=== PATIENT | male | born 1945 | race American Indian/Alaskan Native ===

== ENCOUNTER 2018-04-21 05:46 | Inpatient (IN) | payer OTHER ==
--- NOTE | 2018-04-21 06:51 | XRay Report ---
FINAL REPORT EXAM: XR CHEST ROUTINE 2V HISTORY: SOB TECHNIQUE: PA and lateral views of the chest were submitted. FINDINGS: The heart size and vascularity appear normal. The lungs are clear. Pleural fluid is not seen. The thoracic aorta is mildly tortuous. The skeletal structures do not show any acute changes. IMPRESSION: No acute cardiopulmonary process.
--- NOTE | 2018-04-21 06:57 | Cat Scan Report ---
FINAL REPORT EXAM: CT HEAD/BRAIN WO CON HISTORY: S/P fall with LOC/ lac to forehead TECHNIQUE: Routine axial imaging was obtained of the brain without IV contrast. FINDINGS: There is age related atrophy. There is diminished attenuation of the periventricular white matter compatible with chronic microvascular disease changes. There is no evidence of acute stroke or hemorrhage. There are no extra-axial fluid collection. The basal cisterns appear normal. The visualized sinuses are clear. The mastoid air cells are well pneumatized. There is localized scalp swelling along inferior medial aspect of the left frontal area. There is no evidence of skull fracture. IMPRESSION: Left frontal scalp swelling. No evidence of skull fracture. Age related atrophy with chronic microvascular disease changes. No evidence of acute stroke or hemorrhage.
[2018-04-21 07:07] LABS: Basophils # (Auto) 0.1 K/mm3 (0.0-0.1); Basophils % (Auto) 0.4 % (0.0-1.8); Hematocrit 32.3 % (35.5-45.6); Lymphocytes # (Auto) 1.9 K/mm3 (1.2-5.4); Lymphocytes % (Auto) 10.5 % (13.4-35.0); Mean Corpuscular HGB Conc 31 % (32-34); Mean Corpuscular Hemoglobin 19 pg (28-32); Mean Corpuscular Volume 62 fl (84-94); Monocytes # (Auto) 1.4 K/mm3 (0.0-0.8); Monocytes % (Auto) 7.7 % (0.0-7.3); Platelet Count 495 K/mm3 (140-440); Red Blood Count 5.18 M/mm3 (3.65-5.03); Red Cell Distribution Width 20.9 % (13.2-15.2)
[2018-04-21 07:49] LABS: Albumin 4.5 g/dL (3.9-5); Calcium 9.3 mg/dL (8.4-10.2)
[2018-04-21] MEDS ORDERED: NACL 0.9% 1000 ML 1,000 ML IV ONE (08:19)
[2018-04-21] MEDS ORDERED: LEVAQUIN 500MG/100ML 500 MG/100 ML BAG IV ONE (08:22)
[2018-04-21] MEDS ORDERED: BOOSTRIX IM ONE ×3 (08:25→10:57)
--- NOTE | 2018-04-21 08:31 | Emergency Department Report ---
ED General Adult HPI - General Chief complaint: Fall Stated complaint: FALL/CUT OVER LT EYE Time Seen by Provider: 04/21/18 07:52 Source: patient, family Mode of arrival: Ambulatory Limitations: No Limitations - History of Present Illness Initial comments: This is a 72 year old male that has fallen 3 times in the past 2 days. Fall that was associated with the laceration to his left eyebrow with more than one day ago. He fell again at about 4 AM prior to coming to the emergency department last night. He has been lethargic but is verbally coherent. He states he had been vomiting and unable to tolerate oral feeding. He denies diarrhea. He states he feels cold now but no temperature was taken at home. He has no history of serious infection per the daughter who accompanies him to the emergency department. The patient has a history of hypertension and apparently schizophrenia judging from his medication. The daughter states the patient has not previously been admitted for a serious infection and not been to this facility before. -: Gradual, days(s) Location: head (not complaining of pain at all at this point) Worsens with: none Associated Symptoms: denies other symptoms (except as above described), weakness (and falls) - Related Data Home Medications Medication Instructions Recorded Confirmed Last Taken Aspirin 81 mg PO QDAY 04/21/18 04/21/18 04/19/18 Atorvastatin Calcium 20 mg PO QHS 04/21/18 04/21/18 04/19/18 Lisinopril [Zestril] 5 mg PO QHS 04/21/18 04/21/18 04/19/18 Pantoprazole [Protonix] 40 mg PO QDAY 04/21/18 04/21/18 04/19/18 Triamterene/Hydrochlorothiazid 1 each PO QDAY 04/21/18 04/21/18 04/19/18 [Triamterene-Hctz 37.5-25 mg Cp] amLODIPine [Norvasc] 10 mg PO QDAY 04/21/18 04/21/18 04/19/18 risperiDONE [RisperiDONE] 1 mg PO QHS 04/21/18 04/21/18 04/19/18 traZODone [Desyrel] 50 mg PO QHS 04/21/18 04/21/18 04/19/18 Allergies Allergy/AdvReac Type Severity Reaction Status Date / Time Penicillins Allergy Hives Verified 04/21/18 06:02 ED Review of Systems ROS: Stated complaint: FALL/CUT OVER LT EYE Other details as noted in HPI Constitutional: weakness. denies: chills, fever Eyes: denies: eye pain, eye discharge, vision change ENT: denies: ear pain, throat pain Respiratory: denies: cough, shortness of breath, wheezing Cardiovascular: denies: chest pain, palpitations Endocrine: no symptoms reported Gastrointestinal: vomiting. denies: abdominal pain, nausea, diarrhea Genitourinary: denies: urgency, dysuria Musculoskeletal: denies: back pain, joint swelling, arthralgia Skin: denies: rash, lesions Neurological: denies: headache, weakness, paresthesias Psychiatric: denies: anxiety, depression Hematological/Lymphatic: denies: easy bleeding, easy bruising ED Past Medical Hx - Past Medical History Previous Medical History?: Yes Hx Hypertension: Yes Hx Psychiatric Treatment: Yes - Surgical History Past Surgical History?: No - Social History Smoking Status: Current Every Day Smoker Substance Use Type: Alcohol, Marijuana - Medications Home Medications: Home Medications Medication Instructions Recorded Confirmed Last Taken Type Aspirin 81 mg PO QDAY 04/21/18 04/21/18 04/19/18 History Atorvastatin Calcium 20 mg PO QHS 04/21/18 04/21/18 04/19/18 History Lisinopril [Zestril] 5 mg PO QHS 04/21/18 04/21/18 04/19/18 History Pantoprazole [Protonix] 40 mg PO QDAY 04/21/18 04/21/18 04/19/18 History Triamterene/Hydrochlorothiazid 1 each PO QDAY 04/21/18 04/21/18 04/19/18 History [Triamterene-Hctz 37.5-25 mg Cp] amLODIPine [Norvasc] 10 mg PO QDAY 04/21/18 04/21/18 04/19/18 History risperiDONE [RisperiDONE] 1 mg PO QHS 04/21/18 04/21/18 04/19/18 History traZODone [Desyrel] 50 mg PO QHS 04/21/18 04/21/18 04/19/18 History ED Physical Exam - General Limitations: No Limitations General appearance: in no apparent distress, lethargic (Will open eyes to command, keeps them closed so until verbal stimuli. GCS is 14), other (appears dehydrated) - Head Head exam: Present: normocephalic. Absent: atraumatic (there is a healing laceration in the left supra-ciliary area of the eyebrow somewhat vertically. There is soft tissue swelling. There is scabbing but no bleeding.) - Eye Eye exam: Present: normal appearance, PERRL, EOMI. Absent: scleral icterus - ENT ENT exam: Present: mucous membranes moist - Neck Neck exam: Present: normal inspection. Absent: tenderness, meningismus - Respiratory Respiratory exam: Present: normal lung sounds bilaterally. Absent: respiratory distress - Cardiovascular Cardiovascular Exam: Present: regular rate, normal rhythm. Absent: systolic murmur, diastolic murmur, rubs, gallop - GI/Abdominal GI/Abdominal exam: Present: soft, normal bowel sounds. Absent: distended, tenderness, guarding, rebound, rigid - Rectal Rectal exam: Present: deferred - Extremities Exam Extremities exam: Present: normal inspection - Neurological Exam Neurological exam: Present: oriented X3, CN II-XII intact. Absent: alert ( lethargic), motor sensory deficit - Psychiatric Psychiatric exam: Present: normal mood, flat affect - Skin Skin exam: Present: warm, dry, intact, normal color. Absent: rash ED Course Vital Signs 04/21/18 06:01 Temperature 97.6 F Pulse Rate 121 H Respiratory 18 Rate Blood Pressure 102/56 O2 Sat by Pulse 96 Oximetry - Reevaluation(s) Reevaluation #1: Patient meets criteria for SIRS. He will be cultured. A lactic acid level will be obtained. He is allergic to penicillin (hives) he was started on vancomycin and Levaquin renal dosing. He will be admitted to the hospitalist service for further care and evaluation. 04/21/18 08:39 Reevaluation #2: Spoke with hospitalist service. Admit to Dr. Hortensia Fowler for further evaluation and care. 04/21/18 09:29 ED Medical Decision Making - Lab Data Result diagrams: 04/21/18 06:55 04/21/18 06:55 Laboratory Results - last 24 hr 04/21/18 04/21/18 06:55 06:55 WBC 18.2 H RBC 5.18 H Hgb 10.0 L Hct 32.3 L MCV 62 L MCH 19 L MCHC 31 L RDW 20.9 H Plt Count 495 H Lymph % (Auto) 10.5 L [place] % (Auto) 7.7 H Eos % (Auto) 0.0 Baso % (Auto) 0.4 Lymph # 1.9 [place] # 1.4 H Eos # 0.0 Baso # 0.1 Seg Neutrophils % 81.4 H Seg Neutrophils # 14.8 H Sodium 132 L Potassium 4.2 Chloride 91.1 L Carbon Dioxide 25 Anion Gap 20 BUN 34 H Creatinine 2.1 H Estimated GFR 31 BUN/Creatinine Ratio 16 Glucose 133 H Calcium 9.3 Total Bilirubin 0.30 AST 29 ALT 24 Alkaline Phosphatase 110 Total Protein 8.1 Albumin 4.5 Albumin/Globulin Ratio 1.3 - EKG Data -: EKG Interpreted by Me EKG shows normal: sinus rhythm (some wandering pacemaker with atrial activity) Rate: normal (96) - EKG Data Interpretation: no acute changes - Radiology Data Radiology results: report reviewed Critical care attestation.: If time is entered above; I have spent that time in minutes in the direct care of this critically ill patient, excluding procedure time. ED Disposition Clinical Impression: SIRS (systemic inflammatory response syndrome), Volume depletion Leukocytosis Qualifiers: Leukocytosis type: unspecified Qualified Code(s): D72.829 - Elevated white blood cell count, unspecified Acute renal failure Qualifiers: Acute renal failure type: unspecified Qualified Code(s): N17.9 - Acute kidney failure, unspecified Eyebrow laceration Qualifiers: Encounter type: initial encounter Laterality: left Qualified Code(s): S01.112A - Laceration without foreign body of left eyelid and periocular area, initial encounter Falls Qualifiers: Encounter type: initial encounter Qualified Code(s): W19.XXXA - Unspecified fall, initial encounter Disposition: OP ADMIT IP TO THIS HOSP Is pt being admited?: Yes Does the pt Need Aspirin: Yes Condition: Stable Time of Disposition: 09:30
[2018-04-21 08:57] LABS: INR 0.91 (0.87-1.13)
[2018-04-21 08:58] LABS: Partial Thromboplastin Time 25.8 Sec. (24.2-36.6)
[2018-04-21 09:23] LABS: Bilirubin,Urine NEG (Negative); Blood,Urine NEG (Negative); Color,Urine Yellow (Yellow); Mucus,Urine FEW /HPF; Urobilinogen,Urine < 2.0 mg/dL (<2.0)
[2018-04-21] MEDS ORDERED: BABY ASPIRIN PO ONE (09:31)
[2018-04-21] MEDS ORDERED: VANCOMYCIN PHARMACY TO DOSE IV SCH (10:00)
[2018-04-21] MEDS ORDERED: VANCOMYCIN 1,250 MG in NACL 0.9% 250ML 250 ML IV ONE (10:00)
--- NOTE | 2018-04-21 10:24 | History and Physical Report ---
History of Present Illness Date of examination: 04/21/18 Date of admission: 04/21/18 Chief complaint: History of recurrent fall, laceration left supraorbital area History of present illness: 72-year-old -[place] male patient with significant history of chronic alcohol use schizophrenia hypertension Visiting his daughter from [place] was brought to the emergency room with history of recurrent falls, patient sustained laceration supraorbital area left-sided Sutured in the emergency room, patient has history of chronic alcohol use Denies any chest pain or shortness of breath, denies headache or dizziness Past History Past Medical History: hypertension, hyperlipidemia, other (schizophrenia) Social history: lives with family, smoking, alcohol abuse, other (recreational drug use) Family history: hypertension Medications and Allergies Allergies Allergy/AdvReac Type Severity Reaction Status Date / Time Penicillins Allergy Hives Verified 04/21/18 06:02 Home Medications Medication Instructions Recorded Confirmed Last Taken Type Aspirin 81 mg PO QDAY 04/21/18 04/21/18 04/19/18 History Atorvastatin Calcium 20 mg PO QHS 04/21/18 04/21/18 04/19/18 History Lisinopril [Zestril] 5 mg PO QHS 04/21/18 04/21/18 04/19/18 History Pantoprazole [Protonix] 40 mg PO QDAY 04/21/18 04/21/18 04/19/18 History Triamterene/Hydrochlorothiazid 1 each PO QDAY 04/21/18 04/21/18 04/19/18 History [Triamterene-Hctz 37.5-25 mg Cp] amLODIPine [Norvasc] 10 mg PO QDAY 04/21/18 04/21/18 04/19/18 History risperiDONE [RisperiDONE] 1 mg PO QHS 04/21/18 04/21/18 04/19/18 History traZODone [Desyrel] 50 mg PO QHS 04/21/18 04/21/18 04/19/18 History Active Meds: Active Medications Amlodipine Besylate (Norvasc) 10 mg PO QDAY [facility] Aspirin (Baby Aspirin) 81 mg PO QDAY [facility] Atorvastatin Calcium (Lipitor) 20 mg PO QHS [facility] Vancomycin HCl 1,250 mg/ (Sodium Chloride) 275 mls @ 166.667 mls/hr IV ONCE.ED ONE Stop: 04/21/18 11:38 Lisinopril (Zestril) 5 mg PO QHS [facility] Pantoprazole Sodium (Protonix) 40 mg PO QDAY [facility] Risperidone (Risperdal) 1 mg PO QHS [facility] Trazodone HCl (Desyrel) 50 mg PO QHS [facility] Review of Systems Constitutional: no weight loss, no weight gain, no fever, no chills, no anorexia , no fatigue Ears, nose, mouth and throat: no nasal congestion, no nasal discharge Cardiovascular: lightheadedness, shortness of breath, no chest pain, no orthopnea Respiratory: no cough with sputum, no hemoptysis Gastrointestinal: no abdominal pain, no nausea, no vomiting Genitourinary Male: no dysuria, no hematuria Musculoskeletal: no myalgias, no arthritis Integumentary: no rash, no lesions Neurological: head injury, weakness, ataxia, other (recurrent falls) Psychiatric: no anxiety, no depression Hematologic/Lymphatic: no easy bruising, no easy bleeding Allergic/Immunologic: no urticaria, no allergic rhinitis Exam - Constitutional Vitals: Temp Pulse Resp BP Pulse Ox 97.6 F 93 H 15 119/65 98 04/21/18 06:01 04/21/18 09:48 04/21/18 09:48 04/21/18 09:48 04/21/18 09:48 General appearance: Present: no acute distress, well-nourished, other ( laceration left supraorbital area sutured mild edema) - EENT Eyes: Present: PERRL, EOM intact - Neck Neck: Present: supple, normal ROM - Respiratory Respiratory effort: normal Respiratory: bilateral: diminished, negative: rales, rhonchi, wheezing - Cardiovascular Rhythm: regular Heart Sounds: Present: S1 & S2 - Extremities Extremities: no ischemia, No edema - Abdominal General gastrointestinal: Present: soft, non-tender, non-distended, normal bowel sounds - Integumentary Integumentary: Present: clear, warm - Musculoskeletal Musculoskeletal: strength equal bilaterally, generalized weakness - Psychiatric Psychiatric: appropriate mood/affect - Neurologic Neurologic: moves all extremities Results - Labs CBC & Chem 7: 04/21/18 06:55 04/21/18 06:55 Labs: Abnormal lab results 04/21/18 04/21/18 04/21/18 Range/Units 06:55 06:55 08:24 WBC 18.2 H (4.5-11.0) K/mm3 RBC 5.18 H (3.65-5.03) M/mm3 Hgb 10.0 L (11.8-15.2) gm/dl Hct 32.3 L (35.5-45.6) % MCV 62 L (84-94) fl MCH 19 L (28-32) pg MCHC 31 L (32-34) % RDW 20.9 H (13.2-15.2) % Plt Count 495 H (140-440) K/mm3 Lymph % (Auto) 10.5 L (13.4-35.0) % [place] % (Auto) 7.7 H (0.0-7.3) % [place] # 1.4 H (0.0-0.8) K/mm3 Seg Neutrophils % 81.4 H (40.0-70.0) % Seg Neutrophils # 14.8 H (1.8-7.7) K/mm3 Sodium 132 L (137-145) mmol/L Chloride 91.1 L (98-107) mmol/L BUN 34 H (9-20) mg/dL Creatinine 2.1 H (0.8-1.5) mg/dL Glucose 133 H (75-100) mg/dL NT-Pro-B Natriuret Pep 1905 H (0-900) pg/mL Assessment and Plan --Recurrent falls; fall precautions Orthostats, supportive care --Acute kidney injury; probably vasomotor nephropathy/ATN Gentle hydration, closely monitor the renal function, avoid nephrotoxins Nephrology consult if needed --Hypertension ; resume home antihypertensives, when necessary medications --Leukocytosis; rule out sepsis, cultures, empiric antibiotics, possible UTI --Elevated BNP; possible congestive heart failure, echocardiogram for left ventricular function ejection fraction --Chronic alcohol use; counseling, advised to quit alcohol intake --Alcohol withdrawal symptoms; closely monitor, CIWA protocol, Ativan as needed --Physical therapy occupational therapy, rehabilitation --DVT prophylaxis; Lovenox --Full CODE STATUS Closely monitor the patient and adjust the management as needed Plan of care is reviewed with the patient and his daughter at the bedside I also discussed with patient's nurse
[2018-04-21] MEDS: ZOFRAN IV PRN (20:52)
[2018-04-21 23:18] LABS: Amphetamine Screen,Urine PRESUMPTIVE NEGATIVE; Benzodiazepines Screen,Urine PRESUMPTIVE NEGATIVE; Cocaine Screen,Urine PRESUMPTIVE NEGATIVE; Methadone Screen,Urine PRESUMPTIVE NEGATIVE; Opiate Screen,Urine PRESUMPTIVE NEGATIVE
[2018-04-21] MEDS: ZESTRIL PO SCH (23:29)
[2018-04-21] MEDS: RisperDAL PO SCH (23:29)
[2018-04-21] MEDS: DESYREL PO SCH (23:29)
[2018-04-21 23:48] LABS: Cannabinoid Screen,Urine PRESUMPTIVE POSITIVE
[2018-04-22 08:32] LABS: Basophils # (Auto) 0.1 K/mm3 (0.0-0.1); Basophils % (Auto) 0.8 % (0.0-1.8); Eosinophils % (Auto) 0.2 % (0.0-4.3); Hematocrit 30.2 % (35.5-45.6); Hemoglobin 9.4 gm/dl (11.8-15.2); Lymphocytes # (Auto) 2.8 K/mm3 (1.2-5.4); Lymphocytes % (Auto) 25.4 % (13.4-35.0); Mean Corpuscular HGB Conc 31 % (32-34); Monocytes # (Auto) 0.9 K/mm3 (0.0-0.8); Monocytes % (Auto) 8.2 % (0.0-7.3); Platelet Count 422 K/mm3 (140-440); Red Blood Count 4.87 M/mm3 (3.65-5.03)
[2018-04-22 08:39] LABS: Mean Corpuscular Hemoglobin 19 pg (28-32); Mean Corpuscular Volume 62 fl (84-94); Red Cell Distribution Width 21.6 % (13.2-15.2)
[2018-04-22 08:53] LABS: BUN/Creatinine Ratio 18; Blood Urea Nitrogen 25 mg/dL (9-20); Calcium 8.6 mg/dL (8.4-10.2); Hemolysis Index 5
[2018-04-22 08:55] LABS: Creatine Kinase MB 2.6 ng/mL (0.0-4.0)
[2018-04-22] MEDS ORDERED: LEVAQUIN 500MG/100ML 500 MG/100 ML BAG IV SCH (10:00)
[2018-04-22] MEDS ORDERED: K-DUR PO ONE ×2 (11:00→16:00)
--- NOTE | 2018-04-22 11:32 | Discharge Summary ---
Providers - Providers Date of Admission: 04/21/18 09:28 Date of discharge: 04/22/18 Attending physician: DELMI FLORES 04/21/18 15:50 Consult to Physician [CONS] Routine Comment: Consulting Provider: DARRELL FONTANEZ Physician Instructions: Reason For Exam: Acute Kidney injury 04/21/18 15:55 Physical Therapy Evaluation and Treat [CONS] Routine Comment: Reason For Exam: recurrent falls/evaluate and treat Primary care physician: DESKTOP MANAGER Hospitalization Condition: Stable Exam - Constitutional Vitals: Temp Pulse Resp BP Pulse Ox 98.6 F 100 H 18 136/87 95 04/22/18 05:34 04/22/18 05:34 04/22/18 05:34 04/22/18 05:34 04/22/18 05:34 Plan Follow up with: SUE SILVERIO MD [Primary Care Provider] - 3-5 Days
[2018-04-22] MEDS ORDERED: PNEUMOVAX 23 IM ONE (12:00)
[2018-04-22] MEDS: ZOFRAN IV PRN (12:16)
[2018-04-22] MEDS: LEVAQUIN 250MG/50ML 250 MG/50 ML BAG IV SCH (14:39)
[2018-04-22] MEDS: NORVASC PO SCH (14:39)
[2018-04-22] MEDS: BABY ASPIRIN PO SCH (14:40)
[2018-04-22] MEDS: PROTONIX PO SCH (14:40)
[2018-04-22] MEDS: VANCOMYCIN/NS 1 GM/250 ML 1 GM/250 ML BAG IV SCH (15:34)
--- NOTE | 2018-04-22 17:36 | Progress Note ---
Assessment and Plan Assessment and plan: --Gram-positive bacteremia; 1;2 Empiric antibiotics, repeat cultures. Supportive care --Hypokalemia; replace per protocol and monitor level --h/o Recurrent falls; fall precautions probably secondary to alcohol use Check Orthostats, patient tolerated physical therapy, --Acute kidney injury; probably vasomotor nephropathy/ATN; significantly improved Gentle hydration, closely monitor the renal function, avoid nephrotoxins --Hypertension ; well controlled , continue antihypertensives, when necessary medications --Leukocytosis; trending down, bacteremia, possible UTI --Elevated BNP; possible congestive heart failure, follow-up echocardiogram for EF --Chronic alcohol use; counseling, advised to quit alcohol intake --Alcohol withdrawal symptoms; closely monitor, CIWA protocol, Ativan as needed --Physical therapy occupational therapy, ambulated without assistance --DVT prophylaxis; Lovenox --Full CODE STATUS Closely monitor the patient and adjust the management as needed Plan of care is reviewed with the patient and his nurse Possible discharge in 1-2 days if stable History Interval history: Patient seen and examined medical records reviewed Patient doing well, planning to discharge the patient home today However 1 in 2 positive blood cultures gram-positive cocci Patient afebrile, No new complaints Vital signs stable Hospitalist Physical - Constitutional Vitals: Temp Pulse Resp BP Pulse Ox 98.1 F 100 H 19 132/82 98 04/22/18 12:45 04/22/18 12:45 04/22/18 12:45 04/22/18 12:45 04/22/18 12:45 General appearance: Present: no acute distress, well-nourished, other ( laceration left supraorbital area sutured mild edema) - EENT Eyes: Present: PERRL, EOM intact - Neck Neck: Present: supple, normal ROM - Respiratory Respiratory effort: normal Respiratory: bilateral: diminished, negative: rales, rhonchi, wheezing - Cardiovascular Rhythm: regular Heart Sounds: Present: S1 & S2 - Extremities Extremities: no ischemia, No edema - Abdominal General gastrointestinal: soft, non-tender, non-distended, normal bowel sounds - Integumentary Integumentary: Present: clear, warm - Psychiatric Psychiatric: appropriate mood/affect, cooperative - Neurologic Neurologic: CNII-XII intact, moves all extremities Results - Labs CBC & Chem 7: 04/22/18 07:54 04/22/18 07:54 Labs: Laboratory Last Values WBC 11.1 K/mm3 (4.5-11.0) H 04/22/18 07:54 RBC 4.87 M/mm3 (3.65-5.03) 04/22/18 07:54 Hgb 9.4 gm/dl (11.8-15.2) L 04/22/18 07:54 Hct 30.2 % (35.5-45.6) L 04/22/18 07:54 MCV 62 fl (84-94) L 04/22/18 07:54 MCH 19 pg (28-32) L 04/22/18 07:54 MCHC 31 % (32-34) L 04/22/18 07:54 RDW 21.6 % (13.2-15.2) H 04/22/18 07:54 Plt Count 422 K/mm3 (140-440) 04/22/18 07:54 Lymph % (Auto) 25.4 % (13.4-35.0) 04/22/18 07:54 [place] % (Auto) 8.2 % (0.0-7.3) H 04/22/18 07:54 Eos % (Auto) 0.2 % (0.0-4.3) 04/22/18 07:54 Baso % (Auto) 0.8 % (0.0-1.8) 04/22/18 07:54 Lymph # 2.8 K/mm3 (1.2-5.4) 04/22/18 07:54 [place] # 0.9 K/mm3 (0.0-0.8) H 04/22/18 07:54 Eos # 0.0 K/mm3 (0.0-0.4) 04/22/18 07:54 Baso # 0.1 K/mm3 (0.0-0.1) 04/22/18 07:54 Seg Neutrophils % 65.4 % (40.0-70.0) 04/22/18 07:54 Seg Neutrophils # 7.2 K/mm3 (1.8-7.7) 04/22/18 07:54 PT 12.7 Sec. (12.2-14.9) 04/21/18 08:24 INR 0.91 (0.87-1.13) 04/21/18 08:24 APTT 25.8 Sec. (24.2-36.6) 04/21/18 08:24 Sodium 133 mmol/L (137-145) L 04/22/18 07:54 Potassium 3.5 mmol/L (3.6-5.0) L 04/22/18 07:54 Chloride 95.6 mmol/L (98-107) L 04/22/18 07:54 Carbon Dioxide 24 mmol/L (22-30) 04/22/18 07:54 Anion Gap 17 mmol/L 04/22/18 07:54 BUN 25 mg/dL (9-20) H 04/22/18 07:54 Creatinine 1.4 mg/dL (0.8-1.5) 04/22/18 07:54 Estimated GFR > 60 ml/min 04/22/18 07:54 BUN/Creatinine Ratio 18 % 04/22/18 07:54 Glucose 93 mg/dL (75-100) 04/22/18 07:54 Lactic Acid 1.90 mmol/L (0.7-2.0) 04/21/18 08:24 Calcium 8.6 mg/dL (8.4-10.2) 04/22/18 07:54 Total Bilirubin 0.30 mg/dL (0.1-1.2) 04/21/18 06:55 AST 29 units/L (5-40) 04/21/18 06:55 ALT 24 units/L (7-56) 04/21/18 06:55 Alkaline Phosphatase 110 units/L (35-129) 04/21/18 06:55 Ammonia 48.0 umol/L (25-60) 04/21/18 08:24 Total Creatine Kinase 145 units/L (55-170) 04/22/18 07:54 CK-MB (CK-2) 2.6 ng/mL (0.0-4.0) 04/22/18 07:54 CK-MB (CK-2) Rel Index 1.7 (0-4) 04/22/18 07:54 NT-Pro-B Natriuret Pep 1905 pg/mL (0-900) H 04/21/18 08:24 Total Protein 8.1 g/dL (6.3-8.2) 04/21/18 06:55 Albumin 4.5 g/dL (3.9-5) 04/21/18 06:55 Albumin/Globulin Ratio 1.3 % 04/21/18 06:55 Urine Color Yellow (Yellow) 04/21/18 09:00 Urine Turbidity Cloudy (Clear) 04/21/18 09:00 Urine pH 5.0 (5.0-7.0) 04/21/18 09:00 Ur Specific [place] 1.014 (1.003-1.030) 04/21/18 09:00 Urine Protein 100 mg/dl mg/dL (Negative) 04/21/18 09:00 Urine Glucose (UA) Neg mg/dL (Negative) 04/21/18 09:00 Urine Ketones Neg mg/dL (Negative) 04/21/18 09:00 Urine Blood Neg (Negative) 04/21/18 09:00 Urine Nitrite Neg (Negative) 04/21/18 09:00 Urine Bilirubin Neg (Negative) 04/21/18 09:00 Urine Urobilinogen < 2.0 mg/dL (<2.0) 04/21/18 09:00 Ur Leukocyte Esterase Neg (Negative) 04/21/18 09:00 Urine WBC (Auto) 2.0 /HPF (0.0-6.0) 04/21/18 09:00 Urine RBC (Auto) 3.0 /HPF (0.0-6.0) 04/21/18 09:00 U Epithel Cells (Auto) < 1.0 /HPF (0-13.0) 04/21/18 09:00 Urine Mucus Few /HPF 04/21/18 09:00 Urine Opiates Screen Presumptive negative 04/21/18 17:29 Urine Methadone Screen Presumptive negative 04/21/18 17:29 Ur Barbiturates Screen Presumptive negative 04/21/18 17:29 Ur Phencyclidine Scrn Presumptive negative 04/21/18 17:29 Ur Amphetamines Screen Presumptive negative 04/21/18 17:29 U Benzodiazepines Scrn Presumptive negative 04/21/18 17:29 Urine Cocaine Screen Presumptive negative 04/21/18 17:29 U Marijuana (THC) Screen Presumptive positive 04/21/18 17:29 Drugs of Abuse Note Disclamer 04/21/18 17:29
[2018-04-22] MEDS: DESYREL PO SCH (21:36)
[2018-04-22] MEDS: RisperDAL PO SCH (21:36)
[2018-04-22] MEDS: ZESTRIL PO SCH (21:36)
[2018-04-23] MEDS: NORVASC PO SCH (10:12)
[2018-04-23] MEDS: LEVAQUIN 250MG/50ML 250 MG/50 ML BAG IV SCH (10:12)
[2018-04-23] MEDS: PROTONIX PO SCH (10:13)
[2018-04-23] MEDS: BABY ASPIRIN PO SCH (10:13)
[2018-04-23] MEDS: VANCOMYCIN/NS 1 GM/250 ML 1 GM/250 ML BAG IV SCH (14:35)
--- NOTE | 2018-04-23 18:11 | Progress Note ---
Assessment and Plan Assessment and plan: --Gram-positive bacteremia; 1;2 possible contamination Empiric antibiotics, repeat cultures. Supportive care --Hypokalemia; replace per protocol and monitor level --h/o Recurrent falls; fall precautions probably secondary to alcohol use Check Orthostats, patient tolerated physical therapy, --Acute kidney injury; probably vasomotor nephropathy/ATN; significantly improved Gentle hydration, closely monitor the renal function, avoid nephrotoxins --Hypertension ; well controlled , continue antihypertensives, when necessary medications --Leukocytosis; trending down, bacteremia, possible UTI --Elevated BNP; possible congestive heart failure, follow-up echocardiogram for EF --Chronic alcohol use; counseling, advised to quit alcohol intake --Alcohol withdrawal symptoms; closely monitor, CIWA protocol, Ativan as needed --Physical therapy occupational therapy, ambulated without assistance --DVT prophylaxis; Lovenox --Full CODE STATUS Closely monitor the patient and adjust the management as needed Plan of care is reviewed with the patient and his nurse Possible discharge in 1-2 days if stable History Interval history: Patient seen and examined medical records reviewed Patient feels better no new complaints Mild swelling right upper arm, possibly the injection site Local and supportive care, if no improvement Will check ultrasound Patient alert awake oriented 3 Vital signs reviewed Hospitalist Physical - Constitutional Vitals: Temp Pulse Resp BP Pulse Ox 98.2 F 95 H 20 154/86 99 04/23/18 13:21 04/23/18 13:21 04/23/18 13:21 04/23/18 13:21 04/23/18 13:21 General appearance: Present: no acute distress, well-nourished, other ( laceration left supraorbital area sutured mild edema) - EENT Eyes: Present: PERRL, EOM intact - Neck Neck: Present: supple, normal ROM - Respiratory Respiratory effort: normal Respiratory: bilateral: diminished, negative: rales, rhonchi, wheezing - Cardiovascular Rhythm: regular Heart Sounds: Present: S1 & S2 - Extremities Extremities: no ischemia, pulses intact Extremity abnormal: edema, cyanosis Peripheral Pulses: within normal limits - Abdominal General gastrointestinal: deferred - Integumentary Integumentary: Present: clear, warm - Psychiatric Psychiatric: appropriate mood/affect, cooperative - Neurologic Neurologic: CNII-XII intact, moves all extremities Results - Labs CBC & Chem 7: 04/22/18 07:54 09/15/18 07:54 Labs: Laboratory Last Values WBC 11.1 K/mm3 (4.5-11.0) H 04/22/18 07:54 RBC 4.87 M/mm3 (3.65-5.03) 04/22/18 07:54 Hgb 9.4 gm/dl (11.8-15.2) L 04/22/18 07:54 Hct 30.2 % (35.5-45.6) L 04/22/18 07:54 MCV 62 fl (84-94) L 04/22/18 07:54 MCH 19 pg (28-32) L 04/22/18 07:54 MCHC 31 % (32-34) L 04/22/18 07:54 RDW 21.6 % (13.2-15.2) H 04/22/18 07:54 Plt Count 422 K/mm3 (140-440) 04/22/18 07:54 Lymph % (Auto) 25.4 % (13.4-35.0) 04/22/18 07:54 Bureau % (Auto) 8.2 % (0.0-7.3) H 04/22/18 07:54 Eos % (Auto) 0.2 % (0.0-4.3) 04/22/18 07:54 Baso % (Auto) 0.8 % (0.0-1.8) 04/22/18 07:54 Lymph # 2.8 K/mm3 (1.2-5.4) 04/22/18 07:54 Bureau # 0.9 K/mm3 (0.0-0.8) H 04/22/18 07:54 Eos # 0.0 K/mm3 (0.0-0.4) 04/22/18 07:54 Baso # 0.1 K/mm3 (0.0-0.1) 04/22/18 07:54 Seg Neutrophils % 65.4 % (40.0-70.0) 04/22/18 07:54 Seg Neutrophils # 7.2 K/mm3 (1.8-7.7) 04/22/18 07:54 PT 12.7 Sec. (12.2-14.9) 04/21/18 08:24 INR 0.91 (0.87-1.13) 04/21/18 08:24 APTT 25.8 Sec. (24.2-36.6) 04/21/18 08:24 Sodium 133 mmol/L (137-145) L 04/22/18 07:54 Potassium 3.5 mmol/L (3.6-5.0) L 04/22/18 07:54 Chloride 95.6 mmol/L (98-107) L 04/22/18 07:54 Carbon Dioxide 24 mmol/L (22-30) 04/22/18 07:54 Anion Gap 17 mmol/L 04/22/18 07:54 BUN 25 mg/dL (9-20) H 04/22/18 07:54 Creatinine 1.4 mg/dL (0.8-1.5) 04/22/18 07:54 Estimated GFR > 60 ml/min 04/22/18 07:54 BUN/Creatinine Ratio 18 % 04/22/18 07:54 Glucose 93 mg/dL (75-100) 04/22/18 07:54 Lactic Acid 1.90 mmol/L (0.7-2.0) 04/21/18 08:24 Calcium 8.6 mg/dL (8.4-10.2) 04/22/18 07:54 Total Bilirubin 0.30 mg/dL (0.1-1.2) 04/21/18 06:55 AST 29 units/L (5-40) 04/21/18 06:55 ALT 24 units/L (7-56) 04/21/18 06:55 Alkaline Phosphatase 110 units/L (35-129) 04/21/18 06:55 Ammonia 48.0 umol/L (25-60) 04/21/18 08:24 Total Creatine Kinase 145 units/L (55-170) 04/22/18 07:54 CK-MB (CK-2) 2.6 ng/mL (0.0-4.0) 04/22/18 07:54 CK-MB (CK-2) Rel Index 1.7 (0-4) 04/22/18 07:54 NT-Pro-B Natriuret Pep 1905 pg/mL (0-900) H 04/21/18 08:24 Total Protein 8.1 g/dL (6.3-8.2) 04/21/18 06:55 Albumin 4.5 g/dL (3.9-5) 04/21/18 06:55 Albumin/Globulin Ratio 1.3 % 04/21/18 06:55 Urine Color Yellow (Yellow) 04/21/18 09:00 Urine Turbidity Cloudy (Clear) 04/21/18 09:00 Urine pH 5.0 (5.0-7.0) 04/21/18 09:00 Ur Specific [place] 1.014 (1.003-1.030) 04/21/18 09:00 Urine Protein 100 mg/dl mg/dL (Negative) 04/21/18 09:00 Urine Glucose (UA) Neg mg/dL (Negative) 04/21/18 09:00 Urine Ketones Neg mg/dL (Negative) 04/21/18 09:00 Urine Blood Neg (Negative) 04/21/18 09:00 Urine Nitrite Neg (Negative) 04/21/18 09:00 Urine Bilirubin Neg (Negative) 04/21/18 09:00 Urine Urobilinogen < 2.0 mg/dL (<2.0) 04/21/18 09:00 Ur Leukocyte Esterase Neg (Negative) 04/21/18 09:00 Urine WBC (Auto) 2.0 /HPF (0.0-6.0) 04/21/18 09:00 Urine RBC (Auto) 3.0 /HPF (0.0-6.0) 04/21/18 09:00 U Epithel Cells (Auto) < 1.0 /HPF (0-13.0) 04/21/18 09:00 Urine Mucus Few /HPF 04/21/18 09:00 Urine Opiates Screen Presumptive negative 04/21/18 17:29 Urine Methadone Screen Presumptive negative 04/21/18 17:29 Ur Barbiturates Screen Presumptive negative 04/21/18 17:29 Ur Phencyclidine Scrn Presumptive negative 04/21/18 17:29 Ur Amphetamines Screen Presumptive negative 04/21/18 17:29 U Benzodiazepines Scrn Presumptive negative 04/21/18 17:29 Urine Cocaine Screen Presumptive negative 04/21/18 17:29 U Marijuana (THC) Screen Presumptive positive 04/21/18 17:29 Drugs of Abuse Note Disclamer 04/21/18 17:29
[2018-04-23] MEDS: ZESTRIL PO SCH (21:25)
[2018-04-23] MEDS: DESYREL PO SCH (21:25)
[2018-04-23] MEDS: RisperDAL PO SCH (21:25)
[2018-04-24 08:23] LABS: Hematocrit 27.2 % (35.5-45.6); Hemoglobin 8.6 gm/dl (11.8-15.2); Mean Corpuscular HGB Conc 32 % (32-34); Platelet Count 381 K/mm3 (140-440); Red Blood Count 4.39 M/mm3 (3.65-5.03)
[2018-04-24 08:26] LABS: Mean Corpuscular Hemoglobin 20 pg (28-32); Mean Corpuscular Volume 62 fl (84-94); Red Cell Distribution Width 20.5 % (13.2-15.2)
[2018-04-24 08:54] LABS: BUN/Creatinine Ratio 16; Blood Urea Nitrogen 19 mg/dL (9-20); Calcium 8.7 mg/dL (8.4-10.2); Hemolysis Index 0
[2018-04-24 09:32] LABS: Band Neutrophils # (Manual) 0.1 K/mm3; Basophils % (Manual) 0 % (0.0-1.8); Total Cells Counted 100
[2018-04-24 09:35] LABS: Anisocytosis 1+; Ovalocytes 1+; Poikilocytosis 1+; Tear Drop Cells Few
[2018-04-24 09:36] LABS: Helmet Cells Few; Hypochromasia 1+
[2018-04-24] MEDS: LEVAQUIN 250MG/50ML 250 MG/50 ML BAG IV SCH (10:57)
[2018-04-24] MEDS: NORVASC PO SCH ×2 (10:57→11:00)
[2018-04-24] MEDS: BABY ASPIRIN PO SCH (10:58)
[2018-04-24] MEDS: PROTONIX PO SCH (10:59)
[2018-04-24 12:20] VITALS: BP 132/73
--- NOTE | 2018-04-24 13:20 | Discharge Summary ---
Providers - Providers Date of Admission: 04/21/18 09:28 Date of discharge: 04/24/18 Attending physician: DELMI FLORES 04/21/18 15:50 Consult to Physician [CONS] Routine Comment: Consulting Provider: DARRELL FONTANEZ Physician Instructions: Reason For Exam: Acute Kidney injury 04/21/18 15:55 Physical Therapy Evaluation and Treat [CONS] Routine Comment: Reason For Exam: recurrent falls/evaluate and treat Primary care physician: PHOTOGRAPHIC PROCESS ATTENDANT Hospitalization Reason for admission: History of recurrent fall ,s/p fall,scapl laceration Condition: Stable Pertinent studies: CT head without contrast; left frontal scalp swelling no evidence of skull fracture Age-related atrophy with chronic microvascular disease; no evidence of stroke or hemorrhage Chest x-ray; Hospital course: 72-year-old -[place] male patient recently turned 73 was admitted through emergency room with recurrent falls secondary to alcohol intake Patient also sustained supraorbital laceration, Symptomatically managed, CT head no acute abnormality, placed on protocol Closely monitored for alcohol withdrawal symptoms, Patient also had SIRS by criteria, cultures 1 out of 4 positive for coag-negative staph Which is probably a contamination, Patient did not have any fever, symptoms of sepsis, available received empiric antibiotics prior to cultures were reported Received physical therapy, ambulated without support, no evidence of alcohol withdrawal symptoms like tremulousness or agitation Today patient is comfortable in no new complaints, Vital signs stable, ambulatory tolerating oral nutrition Patient is hemodynamically and clinically stable at discharge, Strongly advised to quit alcohol intake, advised to seek alcohol rehabilitation, Patient verbalized understanding Patient is hemodynamically and clinically stable at discharge Discharge diagnoses; --Gram-positive bacteremia; 1;2 possible contamination, repeat cultures negative --SIRS; by criteria, significantly improved --Hypokalemia; corrected --h/o Recurrent falls; fall precautions probably secondary to alcohol use --Acute kidney injury; probably vasomotor nephropathy/ATN; resolved --Hypertension ; well controlled , --Leukocytosis; SIRS trending down, --Elevated BNP; possible congestive heart failure, fluid overload --Chronic alcohol use; counseling, --Alcohol withdrawal symptoms; closely monitor, --Physical therapy occupational therapy, ambulate as tolerated Disposition: DC-07 LEFT AGAINST MED ADVICE Time spent for discharge: 32 min Core Measure Documentation - Palliative Care Palliative Care/ Comfort Measures: Not Applicable - Core Measures Any of the following diagnoses?: none Exam - Constitutional Vitals: Temp Pulse Resp BP Pulse Ox 97.8 F 98 H 16 132/73 98 04/24/18 11:51 04/24/18 11:51 04/24/18 11:51 04/24/18 11:51 04/24/18 11:51 General appearance: Present: no acute distress, well-nourished - EENT Eyes: Present: PERRL, EOM intact - Neck Neck: Present: supple, normal ROM - Respiratory Respiratory effort: normal Respiratory: bilateral: diminished, negative: rales, rhonchi, wheezing - Cardiovascular Rhythm: regular Heart Sounds: Present: S1 & S2 - Extremities Extremities: no ischemia, No edema - Abdominal General gastrointestinal: Present: soft, non-tender, non-distended, normal bowel sounds - Integumentary Integumentary: Present: clear, warm - Musculoskeletal Musculoskeletal: strength equal bilaterally, generalized weakness - Psychiatric Psychiatric: appropriate mood/affect, cooperative - Neurologic Neurologic: CNII-XII intact, moves all extremities Plan Activity: no restrictions, fall precautions Diet: regular Additional Instructions: Not to drink and drive, advised not to operate heavy machinery under the influence of alcohol, patient verbalized understanding Follow up with: PRIMARY CARE, [Primary Care Provider] - 3-5 Days
--- NOTE | 2018-04-24 14:49 | Query-Infection ---
"Meme Valles Hortensia Date:____04/24/18 Local Government Legislator/CDS:___eli Phone#:___[phone] Exercise your independent professional judgment when responding to this query. Questions asked do not imply a particular answer is desired or expected. We greatly appreciate your clarification on this issue. Clinical Documentation States: 72-year-old -[place] male patient with significant history of chronic alcohol use schizophrenia hypertension Visiting his daughter from [place] was brought to the emergency room with history of recurrent falls, patient sustained laceration supraorbital area left-sided Sutured in the emergency room, patient has history of chronic alcohol use Denies any chest pain or shortness of breath, denies headache or dizziness Assessment and plan: Gram-positive bacteremia; 1;2 possible contamination Empiric antibiotics, repeat cultures. Supportive care --Hypokalemia; replace per protocol and monitor level --h/o Recurrent falls; fall precautions probably secondary to alcohol use Check Orthostats, patient tolerated physical therapy, --Acute kidney injury; probably vasomotor nephropathy/ATN; significantly improved Gentle hydration, closely monitor the renal function, avoid nephrotoxins --Hypertension ; well controlled , continue antihypertensives, when necessary medications --Leukocytosis; trending down, bacteremia, possible UTI --Elevated BNP; possible congestive heart failure, follow-up echocardiogram for EF Clinical findings show: (please check applicable parameters) Infection, known /suspected, with some of the following indicators; Specify the infection: bacteremia, possible UTI 04/21/18 04/22/18 WBC 18.2 11.1 11.7 NM 121 104 100 Blood culture shows Coag negative staphylococcus Pt given IV antibiotics Vancomycin, Levofloxacin 3 General parameters [ ] Fever (core temp >38.30C or 100.40F) [ ] Hypothermia (core temp <36C) [X ] Heart rate >90 bpm [ ] Tachypnea: >20 bpm or pCO2 < 32 mmHg [ ] Altered mental status [ ] Significant edema / +ve fluid balance (>20 ml/kg 24 h) [ ] Hyperglycemia (Bl. glucose >110 mg/dl) w/o diabetes Inflammatory parameters [X ] Leukocytosis (white blood cell count >12,000/l) [ ] Leukopenia (white blood cell count <4,000/l) [ ] Bandemia (immature WBC > 10%) [ ] Leucocyte Left Shift [ ] Plasma procalcitonin>2 SD above the normal value Hemodynamic and tissue perfusion parameters [ ] Arterial hypotension(SBP <90 mmHg, MAP <70 mmHg,or a SBP drop >40 mmHg in adults) [ ] Hyperlactatemia (>3 mmol/l) [ ] Anion Gap (> 11mEG/l) [ ] Decreased capillary refill or mottling Organ dysfunction parameters [ ] Arterial hypoxemia (PaO2/FIO2 <300) [ ] Creatinine increase =0.5 mg/dl [ ] Acute oliguria (urine output <0.5 ml | kg |h or 45 mM/l for at least 2 hrs) [ ] Coagulation abnormalities (INR >1.5 or activated partial thromboplastin time >60 s) [ ] Ileus (absent hang wel sounds) [ ] Thrombocytopenia (platelet count <100,000/l) [ ] Hyperbilirubinemia (plasma total bilirubin >4 mg/dl) According to the clinical indications above, can Bacteremia be further specified? If so, please indicate below and in your Progress Notes and/ or Discharge Summary. Indicate if the condition was present on admission. PHYSICIAN RESPONSE: [ ] Sepsis [ ] Severe Sepsis [ ] Septic Shock [ ] Septicemia [ ] Sepsis now resolved [ ] SIRS due to non-infectious cause with organ dysfunction [ x] SIRS due to non-infectious cause without organ dysfunction [ ] Other: [ ] Comment/Explanation: Present on Admission: [x ] Yes (Y) [ ] Clinically undeterminable (W) [ ] No (N) [ ] Ruled Out Please also document response in your Progress Notes and/or Discharge Summary and indicate if the condition was present on admission Notes: SIRS/ SIRS WITH ORGAN DYSFUNCTION Systemic inflammatory response syndrome (SIRS) generally refers to the systemic response to trauma/valdivia or other insult such as Acute Myocardial Infarction, Acute Pancreatitis, and Major Surgery with symptoms including fever, tachycardia , tachypnea, and leukocytosis (1). BACTEREMIA Presence of viable bacteria in the circulating blood (2). This term is reserved for patients that do not manifest above SIRS response. SEPTICEMIA Generally refers to a systemic disease associated with the presence of pathological microorganisms or toxins in the blood, which can include bacteria, viruses, fungi or other organisms (1). SEPSIS Generally refers to SIRS due infection (1). SEVERE SEPSIS Generally refers to sepsis associated with acute organ dysfunction (1). SEPTIC SHOCK Generally refers to circulatory failure associated with severe sepsis (2), and defined as hypotension or hypoperfusion despite adequate fluid resuscitation (1 hour) (3). REFERENCES: 1. [place] [employer]/Society of Critical Care Medicine Consensus Conference. Definitions for sepsis and organ failure and guidelines for the use of innovative therapies in sepsis. Critical Care Med 1992;20:864 - 74. 2. Alonso y MM, Lucy MP, Fabrizio JOSEE, Paco E, Colin D, Ben D, Victoriano J, Sarah SM , Gabriel PINA, Servando G; International Sepsis Definitions Conference. 2000 SCCM/ESICM/ACCP/ATS/SIS International Sepsis Definitions Conference. Intensive Care Med. 2002;29(4):530-8. Epub 2002Nov 02. Review. PubMed PMID:[id number] 3. ICD-9-CM Official Guidelines for Coding and Reporting 4. Medscape Drugs, Diseases and Procedures references 5. [employer] Textbook of Internal Medicine. 18th Edition MTDD"
== END 2018-04-24 12:00 | disposition left against medical advice (07) | DRG 683 ==
LOC: ED 05:46 → 3A 09:28
PROVIDERS: ADMIT Internal Medicine; ATTEND Internal Medicine
PROC: 3E0234Z Introduction of Serum, Toxoid and Vaccine into Muscle, Percutaneous Approach (ICD-10-PCS; principal; 2018-04-22)
DX: N17.0 Acute kidney failure with tubular necrosis (principal); R65.10 Systemic inflammatory response syndrome (SIRS) of non-infectious origin without acute organ dysfunction; R78.81 Bacteremia; F10.239 Alcohol dependence with withdrawal, unspecified; E87.6 Hypokalemia; S01.112A Laceration without foreign body of left eyelid and periocular area, initial encounter; I50.9 Heart failure, unspecified; I11.0 Hypertensive heart disease with heart failure; X58.XXXA Exposure to other specified factors, initial encounter; F20.9 Schizophrenia, unspecified; F12.90 Cannabis use, unspecified, uncomplicated; F17.200 Nicotine dependence, unspecified, uncomplicated; W18.39XA Other fall on same level, initial encounter; E87.70 Fluid overload, unspecified; Y93.89 Activity, other specified; Y92.89 Other specified places as the place of occurrence of the external cause; Y99.8 Other external cause status; Z71.41 Alcohol abuse counseling and surveillance of alcoholic; Z72.89 Other problems related to lifestyle; Z82.49 Family history of ischemic heart disease and other diseases of the circulatory system; Z88.0 Allergy status to penicillin; Z79.82 Long term (current) use of aspirin; Z79.899 Other long term (current) drug therapy; Z23 Encounter for immunization
CPT/HCPCS: 36415; 70450; 71046; 80048; 80053; 80307; 81001; 82140; 82550; 82553; 83735; 83880; 85007; 85025; 85610; 85730; 87040; 87086; 90471; 90715; 90732; 93005; 93010; 96365; 96367; 96375; A9270-GY; J1956; J2405; J3370; J7030; J7050